=== PATIENT | female | born 1985 | race Caucasian/White ===

== ENCOUNTER → 2016-10-30 | Outpatient (REF) ==
[~2016-10-30] MED LIST: EPA/GLA1 SGL PO; IBU600 MG PO; MOTRIN 800800 MG/TAB PO; PERCOCET 325 MG1 TA2 PO; PRENATAL1 TA1 PO
== END ==
LOC: WSOH 17:00
DX: Z02.89 Encounter for other administrative examinations (principal)

== ENCOUNTER 2017-01-11 08:38 | Inpatient (IN) | payer BC ==
[2017-01-11] VITALS (22 sets, daily range): BP systolic 94–1012; BP diastolic 54–76; PULSE 54–82; TEMP 97.3–98.3
[~2017-01-11] VITALS: Ht 165.1 cm; Wt 68.6 kg
[2017-01-11 09:51] LABS: BASO % 0.3 % (0.0-2.0); EOS # 0.1 (0.0-0.7); EOS % 0.8 % (0-4.0); GRAN # 8.5 (1.4-6.5); GRAN % 77.3 % (42.2-75.2); HEMATOCRIT 40.1 % (37.0-47.0); HEMOGLOBIN 13.6 g/dl (12.5-16.0); LYMPH # 1.7 (1.2-3.4); LYMPH % 15.1 % (20.0-51.0); MEAN CELL VOLUME 95 fl (80.0-100.0); MEAN CORPUSCULAR HEMOGLOBIN 32 pg (27.0-31.0); MEAN CORPUSCULAR HGB CONC 34 g/dl (33.0-37.0); MEAN PLATELET VOLUME 12.4 fl (7.4-10.4); MONO # 0.6 (0.1-0.6); MONO % 5.4 % (1.7-9.3); PLATELET COUNT 133 K/mm3 (130-400); RED BLOOD COUNT 4.23 M/mm3 (4.10-5.30)
[2017-01-12 07:30] VITALS: BP 108/67; PULSE 81; TEMP 97.8
[2017-01-12] MEDS ORDERED: IBU800 M1 PO (10:33)
[2017-01-12] MEDS ORDERED: PERCOCET 325 MG1 TA2 PO (10:33)
[2017-01-12 17:00] VITALS: BP 103/65; PULSE 66; TEMP 97.8
[2017-01-12 20:00] VITALS: BP 107/64; PULSE 53; TEMP 98.2
[2017-01-13 07:25] VITALS: BP 113/62; PULSE 67; TEMP 97.8
== END 2017-01-13 12:45 | disposition home or self-care (01) | DRG 775 ==
LOC: LDRO 08:38 → LDR 08:40 → OB 08:40
PROVIDERS: Obstetrics & Gynecology
PROC: 10E0XZZ Delivery of Products of Conception, External Approach (ICD-10-PCS; principal; 2017-01-11)
PROC: 0KQM0ZZ Repair Perineum Muscle, Open Approach (ICD-10-PCS; 2017-01-11)
DX: O48.0 Post-term pregnancy (principal); O70.1 Second degree perineal laceration during delivery; Z3A.41 41 weeks gestation of pregnancy; Z37.0 Single live birth
CPT/HCPCS: J2590; J7120

== ENCOUNTER 2019-01-24 23:33 | Inpatient (IN) | payer OTHER ==
[~2019-01-24] VITALS: Ht 165.1 cm; Wt 66.8 kg
[~2019-01-24 23:33] MED LIST changes: +IBU800 M1 PO
[2019-01-25] VITALS (23 sets, daily range): BP systolic 90–127; BP diastolic 50–86; PULSE 54–88; TEMP 97.8–98.1
[2019-01-25 00:22] LABS: BASO % 0.2 % (0.0-2.0); EOS # 0.1 (0.0-0.7); EOS % 0.9 % (0-4.0); GRAN # 9.1 (1.4-6.5); HEMATOCRIT 39.1 % (37.0-47.0); HEMOGLOBIN 13.2 g/dl (12.5-16.0); LYMPH # 2.2 (1.2-3.4); LYMPH % 17.9 % (20.0-51.0); MEAN CELL VOLUME 94 fl (80.0-100.0); MEAN CORPUSCULAR HEMOGLOBIN 32 pg (27.0-31.0); MEAN CORPUSCULAR HGB CONC 34 g/dl (33.0-37.0); MEAN PLATELET VOLUME 12.3 fl (7.4-10.4); MONO # 0.7 (0.1-0.6); MONO % 5.5 % (1.7-9.3); PLATELET COUNT 155 K/mm3 (130-400); RED BLOOD COUNT 4.15 M/mm3 (4.10-5.30); REDCELL DISTRIBUTION WIDTH-CV 12.6 % (11.5-14.5)
--- NOTE | 2019-01-25 01:00 | NUR ---
2340- Patient ambulatory to LR-5 with , [place], from ED. Patient and spouse oriented to room. Patient into restroom to void and change into gown. 2345- Patient into bed. EFM and TOCO on and tracing. Patient has complaints of contractions every 8-10 minutes since 2029. Patient states ambulation helps with contraction pain, but has no tried increasing fluids, Tylenol, or Benadryl. Patient denies LOF, bleeding or spotting, and reports good movement. SVE /-1 by this RN. 2350-See Physician Notification. 2355- Admission Orders received. Patient may have epidural when requested. 0000- IV started. Labs drawn and sent. IV bolus infusing. 0010- See Anesthesia Notification. 0040- at bedside. 0042- GEOVANNY Guerra at bedside. Patient repositioned to sitting upright for epidural placement. EFM and TOCO on and tracing intermittently due to maternal position. 0046- Single Shot. 0130- Kent catheter placed. SVE -/-1 by this RN.
--- NOTE | 2019-01-25 03:00 | NUR ---
0215- Early decelerations noted. RN called to bedside. Patient states she felt "that contraction" and it felt much different than the others. SVE Complete/+2. Roles on L&D unit and notified. Kent catheter removed. 0230- Practice Push x1 with this RN. 0239- Roles called to bedside for imminent delivery. Labor room prepared for delivery. 0240- Roles at bedside. Patient begins pushing with contractions. 0244- of viable baby girl. Cord clamped and cut. 0247- Spontaneous delivery of intact placenta. Pitocin infusing at 333 ml/hr per protocol. Fundus massaged to firm by . Perineal repair completed by . Pericare completed. Ice pack applied. 0245- PP Recovery started.
--- NOTE | 2019-01-25 05:00 | NUR ---
0430- Patient sitting upright in bed. Epidural catheter removed per protocol. Tip round and intact. Bandaid applied. Patient able to ambulate independently to restroom to void. Pericare completed. Gown changed. Ice pack applied. Patient ambulated to PP room 2017 independently with RN at stand-by assist. 0500- VSS. Plan of care updated and discussed.
--- NOTE | 2019-01-25 11:10 | NUR ---
Initial visit; Parents thanked Scientific Aide for offering congratulations and God's blessings for the of their daughter. Scientific Aide thanked family for choosing [facility].
[2019-01-26] VITALS: BP 91/54; PULSE 55; TEMP 97.6
[2019-01-26 04:00] VITALS: BP 89/51; PULSE 58; TEMP 97.7
[2019-01-26 07:30] VITALS: BP 106/66; PULSE 69; TEMP 97.9
[2019-01-26] MEDS ORDERED: IBU600 MG PO (07:36)
== END 2019-01-26 14:05 | disposition home or self-care (01) | DRG 807 ==
LOC: LDRO 23:33 → LDR 23:56 → OB 23:56
PROVIDERS: ADMIT Obstetrics & Gynecology
PROC: 10E0XZZ Delivery of Products of Conception, External Approach (ICD-10-PCS; principal; 2019-01-24)
PROC: 0KQM0ZZ Repair Perineum Muscle, Open Approach (ICD-10-PCS; 2019-01-24)
DX: O70.1 Second degree perineal laceration during delivery (principal); Z37.0 Single live birth; Z3A.39 39 weeks gestation of pregnancy; Z23 Encounter for immunization
CPT/HCPCS: J2590; J2795; J7120